=== PATIENT | female | born 1955 | race Caucasian/White ===

== ENCOUNTER 2016-10-30 15:08 | Inpatient (IN) | payer OTHER ==
[~2016-10-30] VITALS: Ht 162.6 cm; Wt 85.3 kg
--- NOTE | ~2016-10-30 | 2DMMODE ---
[facility] [place] [address] 2 D/M-MODE ECHOCARDIOGRAM Name: FRAZIERALEENA Azevedo Room #: 207-P [facility]#: [id number] Admission: 10/30/16 Attend Phys: Aryan Kinney, Discharge: Date of : 53 Date of Service: 10/31/16 1039 Report #: [id number] THIS REPORT FOR: //name// Transthoracic Echocardiography Ordering physician: Jose Harper Referring physician: Jose Harper Family Member Caretaker: Amina Mireles RDCS Indications/History: Acute PE. Dyspnea. Risk factors: Hypertension. BP: 139 / HR: 96bpm Height: 64in Weight: 159.7lb 86 Study data: Comparison was made to the study of July 02, 2015. M-mode, complete 2D, complete spectral Doppler, and color Doppler. Location: Bedside. Director Of Assessing. Image quality was fair. 2D measurements Normal Normal LVID ED 45.4mm 36-57 IVS ED 10.9mm 6-11 LVID ES 29.6mm 23-40 LVPW ED 12mm 6-11 LA volume 15ml/m2 16-28 AoRoot diam 33.6mm 21-37 index ED LVOT diameter 18mm 18-23 Findings: Left ventricle: The cavity size was normal. Wall thickness was increased in a pattern of mild LVH. Systolic function was normal. Wall motion was normal. Right ventricle: The cavity size was normal. Systolic function was normal. Right atrium: The atrium was normal in size. Left atrium: The atrium was normal in size. Volume index: 15ml/m2 (S). Aortic valve: Structurally normal valve. Doppler: There was no stenosis. No regurgitation. Peak velocity: 159.5cm/s (S). Peak gradient: 10.2mm Hg (S). [facility] [address] [address] 2 D/M-MODE ECHOCARDIOGRAM Name: ALEENA FRAZIER Room #: 207-P [facility] IN M.R.#: [id number] Admission: 10/30/16 Attend Phys: Aryan Kinney, Discharge: Date of : 53 Date of Service: 10/31/16 1039 Report #: [id number] Mitral valve: Calcified annulus. Doppler: There was no evidence for stenosis. Mild regurgitation. Peak E-wave velocity: 79.7cm/s. Peak gradient: 2.5mm Hg (D). Peak A-wave velocity: 119.8cm/s. Tricuspid valve: Structurally normal valve. Doppler: There was no evidence for stenosis. Mild regurgitation. Regurgitant peak velocity: 370cm/s. Peak RV-RA gradient: 55mm Hg (S). Pulmonic valve: Structurally normal valve. Doppler: There was no evidence for stenosis. No regurgitation. Pericardium: There was no pericardial effusion. Aorta: Aortic root: The aortic root was normal in size. Pulmonary artery: Systolic pressure was estimated to be 60mm Hg. Diastolic function: Doppler parameters are consistent with abnormal left ventricular relaxation (grade 1 diastolic dysfunction). Systemic veins: Inferior vena cava: The vessel was normal in size; the respirophasic diameter changes were in the normal range (= 50%). Conclusions 1. Left ventricle: The cavity size was normal. Wall thickness was increased in a pattern of mild LVH. Systolic function was normal. Doppler parameters are consistent with abnormal left ventricular relaxation (grade 1 diastolic dysfunction). 2. Left atrium: The atrium was normal in size. 3. Aortic valve: Structurally normal valve. 4. Mitral valve: Mild regurgitation. 5. Tricuspid valve: Mild regurgitation. 6. Pericardium, extracardiac: There was no pericardial effusion. 7. Pulmonary arteries: Systolic pressure was estimated to be 60mm Hg. <ELECTRONICALLY SIGNED> By: Uday Gustafson MD, [facility] 10/31/16 2254 1039 2254 Uday Gustafson MD, [facility] /karla
--- NOTE | ~2016-10-30 | EKG ---
[address] [place] [address] ELECTROCARDIOGRAM REPORT Name: ALEENA FRAZIER Room #: 207-P [facility] IN M.R.#: [id number] Admission: 10/30/16 Attend Phys: Aryan Kinney MD Discharge: 11/01/16 Date of : 53 Report #: [id number] THIS REPORT FOR: //name// [facility] ED Test Date: 2016-10-30 Test Time: 15:15:11 Pat Name: ALEENA FRAZIER Department: Room: 207 Gender: F Business Investor: MAGDALENA : 1955 Requested By: Lalitha Aguiar Order Number: [id number] MD: Keaton Jefferson Measurements Intervals [place] Rate: 116 P: 62 RI: 146 QRS: 16 QRSD: 72 T: 75 QT: 322 QTc: 448 Interpretive Statements Sinus tachycardia Otherwise no significant abnormality No previous ECG available for comparison Electronically Signed On 11-01-2016 14:03:13 [employer] OPER[employer] CHIEF by Keaton Jefferson [email or web address] <ELECTRONICALLY SIGNED> By: Keaton Jefferson MD, [facility] 11/01/16 1403 1515 1515 Keaton Jefferson MD, FACC /EPI
[2016-10-30 15:08] VITALS: BP 152/93
[~2016-10-30 15:08] MED LIST: ADVAIR 250-501 EACH INH; ADVAIR 500-501 EACH INH; ALLEGRA180 MG PO; AMOXICILLIN 50500 MG PO; BENICAR20 MG PO; CLOTRIMAZOLE 1%30 M1 OTIC; DEXAMETHAS0.5 MG/51 NASAL; ELOCON15 G1 TOP; ESTRACE2 MG PO; FETZIMA40 MG PO; GAS-X ULTRA ST180 MG PO; HYDROCODONE-ACE15 ML PO; HYDROCODONE-AP1 EAC6 PO; LEVAQUIN 500 M500 M2 PO; LEXAPRO 10 MG T10 M1 PO; MEDROLDOSEPACK PO; MOBIC15 MG PO; NASOCORT INH; PROAIR HFA8.5 GM INH; PROTONIX40 M2 PO; ROBAXIN 750 MG750 M1 PO; SINGULAIR 10 MG10 M1 PO; VIIBRYD20 MG PO; VITAMIN D1000 UNI1 PO; VOLTAREN GEL 1100 G2 TOP; XANAX 0.5 MG0.5 MG PO; XARELTO20 MG PO; ZADITOR5 M1 GTT
[2016-10-30 16:53] LABS: ABSOLUTE NEUTROPHILS 9.5 thou/uL (1.4-8.2); BASOPHILS 0.4 % (0.0-2.0); EOSINOPHILS 2.2 % (0.0-3.0); HEMOGLOBIN 12.9 gm/dL (12.0-15.0); LYMPHOCYTES 10.4 % (24.0-44.0); MCH 31.8 pg (26.0-34.0); MCHC 33.1 % (28.0-37.0); MONOCYTES 9.7 % (1.0-8.0); PLATELET COUNT 232 thou/uL (150-400); POLYS 77.3 % (36.0-66.0); RBC 4.06 mil/uL (4.20-5.00); RDW 14.1 % (10.5-14.5); WBC 12.3 thou/uL (4.0-11.0)
[2016-10-30 16:57] LABS: MANUAL DIFF NO
[2016-10-30 17:04] LABS: CALCIUM 8.8 mg/dL (8.5-10.1); CREATININE 1.1 mg/dL (0.6-1.3); POTASSIUM 4.4 mmol/L (3.5-5.1)
[2016-10-30 17:11] LABS: ALBUMIN 3.2 g/dL (3.4-5.0); TOTAL BILIRUBIN 0.4 mg/dL (<0.1-1.0); TOTAL PROTEIN 7.1 g/dL (6.4-8.2); TROPONIN-I 0.21 ng/mL (<0.04-0.07)
[2016-10-30 20:29] VITALS: BP 155/97
[2016-10-31 00:34] VITALS: BP 127/92
[2016-10-31 03:47] VITALS: BP 139/86
[2016-10-31 05:05] LABS: HEMATOCRIT 38.8 % (37.0-47.0); HEMOGLOBIN 12.7 gm/dL (12.0-15.0); MCHC 32.7 % (28.0-37.0); RBC 3.96 mil/uL (4.20-5.00); WBC 11.9 thou/uL (4.0-11.0)
[2016-10-31 05:44] LABS: CALCIUM 8.8 mg/dL (8.5-10.1); CREATININE 0.8 mg/dL (0.6-1.3); POTASSIUM 3.6 mmol/L (3.5-5.1)
[2016-10-31 07:55] VITALS: BP 151/104
[2016-10-31 12:55] VITALS: BP 127/87
[2016-10-31 16:35] VITALS: BP 138/85
[2016-10-31 20:10] VITALS: BP 156/92
[2016-11-01 00:35] VITALS: BP 148/101
[2016-11-01 04:32] LABS: HEMATOCRIT 32.4 % (37.0-47.0); HEMOGLOBIN 10.9 gm/dL (12.0-15.0); MCH 32.3 pg (26.0-34.0); MCHC 33.6 % (28.0-37.0); MCV 95.9 fL (80.0-100.0); RBC 3.38 mil/uL (4.20-5.00); RDW 14.2 % (10.5-14.5); WBC 9.9 thou/uL (4.0-11.0)
[2016-11-01 04:48] LABS: CALCIUM 8.3 mg/dL (8.5-10.1); CREATININE 0.8 mg/dL (0.6-1.3); POTASSIUM 4.1 mmol/L (3.5-5.1)
[2016-11-01 05:03] VITALS: BP 145/100
[2016-11-01 07:15] VITALS: BP 145/100
[2016-11-01] MEDS ORDERED: XARELTO15 MG PO (08:54)
[2016-11-01] MEDS ORDERED: AZITHROMYCIN 2250 MG PO (08:54)
[2016-11-01] MEDS ORDERED: XARELTO20 MG PO (08:56)
[2016-11-01 09:57] VITALS: BP 145/100
== END 2016-11-01 10:59 | disposition home or self-care (01) | DRG 176 ==
LOC: ER 15:08 → EROBS 17:30 → 2N 20:26
PROVIDERS: Hospitalist; Physician Assistant
PROC: 5A09357 Assistance with Respiratory Ventilation, Less than 24 Consecutive Hours, Continuous Positive Airway Pressure (ICD-10-PCS; principal; 2016-11-01)
DX: I26.99 Other pulmonary embolism without acute cor pulmonale (principal); G90.519 Complex regional pain syndrome I of unspecified upper limb; J45.909 Unspecified asthma, uncomplicated; G47.33 Obstructive sleep apnea (adult) (pediatric); I10 Essential (primary) hypertension; K21.9 Gastro-esophageal reflux disease without esophagitis; J32.9 Chronic sinusitis, unspecified; F32.9 Major depressive disorder, single episode, unspecified; Z99.89 Dependence on other enabling machines and devices; Z79.01 Long term (current) use of anticoagulants; Z90.49 Acquired absence of other specified parts of digestive tract; Z91.048 Other nonmedicinal substance allergy status; Z88.1 Allergy status to other antibiotic agents; Z98.890 Other specified postprocedural states
CPT/HCPCS: 10194

== ENCOUNTER → 2017-06-25 | Outpatient (CLI) | payer OTHER ==
[~2017-06-25] MED LIST changes: +AZITHROMYCIN 2250 MG PO; +XARELTO15 MG PO
== END ==
LOC: RAD 02:45
DX: Z12.31 Encounter for screening mammogram for malignant neoplasm of breast (principal)

== ENCOUNTER → 2017-10-12 | Outpatient (CLI) | payer OTHER ==
--- NOTE | ~2017-10-12 | 2DMMODE ---
[facility] [place] [address] 2 D/M-MODE ECHOCARDIOGRAM Name: FRAZIERALEENA Roberto Carlos Room #: REG CL [facility]#: [id number] Admission: 10/12/17 Attend Phys: Aryan Kinney, Discharge: Date of : 53 Date of Service: 10/12/17 1607 Report #: [id number] THIS REPORT FOR: //name// APPROVED REPORT Study performed: 10/12/2017 13:56:13 EXAM: Comprehensive 2D, Doppler, and color-flow Echocardiogram Patient Location: Out-Patient Status: routine BSA: 1.83 HR: 89 bpm BP: 129/86 mmHg Rhythm: NSR Other Information Study Quality: Good Indications Cough, dyspnea. Hx: Pulmonary embolism, HTN 2D Dimensions RVDd: 27.31 mm LVEF(%): 55.78 (>50%) IVSd: 12.00 (7-11mm) LVOT Diam: 18.75 (18-24mm) LVDd: 43.57 mm PWd: 12.00 (7-11mm) Ascending Ao: 33.03 (22-36mm) LVDs: 30.99 (25-40mm) Aortic Root: 30.67 mm Zaragoza's LVEF: 55.78 % Volumes Left Atrial Volume (Systole) Single Plane 4CH: 49.34 mL Single Plane 2CH: 46.73 mL LA ESV Index: 28.00 mL/m2 Aortic Valve AoV Peak Tariq.: 1.67 m/s AO Peak Gr.: 11.12 mmHg LVOT Max P.35 mmHg LVOT Max V: 1.16 m/s JESSE Vmax: 1.91 cm2 Mitral Valve E/A Ratio: 0.8 MV Decel. Time: 157.07 ms [facility] [place] [address] 2 D/M-MODE ECHOCARDIOGRAM Name: ALEENA FRAZIER Room #: [facility]#: [id number] Admission: 10/12/17 Attend Phys: Aryan Kinney, Discharge: Date of : 53 Date of Service: 10/12/17 1607 Report #: [id number] MV E Max Tariq.: 0.77 m/s MV A Tariq.: 0.92 m/s MV PHT: 45.55 ms IVRT: 76.12 ms Pulmonary Valve PV Peak Tariq.: 1.10 m/s PV Peak Gr.: 4.88 mmHg Tricuspid Valve TR Peak Tariq.: 2.68 m/s RAP Estimate: 5.00 mmHg TR Peak Gr.: 28.67 mmHg PA Pressure: 35.00 mmHg Left Ventricle The left ventricle is normal size. There is normal LV segmental wall motion. Mild concentric left ventricular hypertrophy. Left ventricular systolic function is normal. LVEF is 55-60%. Mild diastolic dysfunction is present (impaired relaxation pattern). Right Ventricle The right ventricle is normal size. The right ventricular systolic function is normal. Atria The left atrium size is normal. The right atrium size is normal. Aortic Valve The aortic valve is normal in structure. Mild aortic regurgitation. There is no aortic valvular stenosis. Mitral Valve The mitral valve is normal in structure. Mild mitral annular calcification. Mild mitral regurgitation. Tricuspid Valve The tricuspid valve is normal in structure. Trace tricuspid regurgitation. Estimated PAP is 35mmHg. Pulmonic Valve The pulmonary valve is normal in structure. Mild pulmonic regurgitation. Great Vessels The aortic root is normal in size. The ascending aorta is normal in [facility] [address] [place] [address] 2 D/M-MODE ECHOCARDIOGRAM Name: ALEENA FRAZIER [facility]: [facility] [id number] Admission: 10/12/17 Attend Phys: Aryan Kinney, Discharge: Date of : 53 Date of Service: 10/12/17 1607 Report #: [id number] size. IVC is normal in size and collapses >50% with inspiration. Pericardium There is no pericardial effusion. <Conclusion> The left ventricle is normal size. Mild concentric left ventricular hypertrophy. Left ventricular systolic function is normal. Mild diastolic dysfunction is present (impaired relaxation pattern). The right ventricle is normal size. The left atrium size is normal. Mild aortic regurgitation. Mild mitral regurgitation. Trace tricuspid regurgitation. Estimated PAP is 35mmHg. <ELECTRONICALLY SIGNED> By: Lavell Wilkins MD 10/12/171606 06 06 Lavell Wilkins MD /INF
== END ==
LOC: CV 12:52
DX: I50.30 Unspecified diastolic (congestive) heart failure (principal); I08.0 Rheumatic disorders of both mitral and aortic valves

== ENCOUNTER → 2019-06-29 | Outpatient (CLI) | payer OTHER, MEDICARE | LOC: RAD 02:27 | DX: Z12.31 Encounter for screening mammogram for malignant neoplasm of breast (principal) ==

== ENCOUNTER → 2019-11-08 | Outpatient (CLI) | payer OTHER, MEDICARE | LOC: MRI 12:25 | DX: M47.816 Spondylosis without myelopathy or radiculopathy, lumbar region (principal); M43.16 Spondylolisthesis, lumbar region; M53.87 Other specified dorsopathies, lumbosacral region; M51.26 Other intervertebral disc displacement, lumbar region; M12.88 Other specific arthropathies, not elsewhere classified, other specified site; M48.061 Spinal stenosis, lumbar region without neurogenic claudication ==

== ENCOUNTER → 2020-04-30 | Outpatient (CLI) | payer OTHER, MEDICARE | LOC: SJCVC 13:18 | PROVIDERS: ATTEND Internal Medicine Cardiovascular Disease | DX: R94.31 Abnormal electrocardiogram [ECG] [EKG] (principal); R06.09 Other forms of dyspnea; R07.9 Chest pain, unspecified; I10 Essential (primary) hypertension; K21.9 Gastro-esophageal reflux disease without esophagitis ==

== ENCOUNTER → 2020-05-14 | Outpatient (CLI) | payer OTHER, MEDICARE | LOC: SJCVCIMAG 07:50 | PROVIDERS: ATTEND Internal Medicine Cardiovascular Disease | DX: I49.3 Ventricular premature depolarization (principal); I10 Essential (primary) hypertension; Z79.01 Long term (current) use of anticoagulants; Z79.899 Other long term (current) drug therapy ==

== ENCOUNTER → 2020-05-15 | Outpatient (CLI) | payer OTHER, MEDICARE | LOC: SJCVCIMAG 08:22 | PROVIDERS: ATTEND Internal Medicine Cardiovascular Disease | DX: I08.3 Combined rheumatic disorders of mitral, aortic and tricuspid valves (principal); R06.09 Other forms of dyspnea; R07.9 Chest pain, unspecified; I10 Essential (primary) hypertension; K21.9 Gastro-esophageal reflux disease without esophagitis ==

== ENCOUNTER → 2020-07-03 | Outpatient (CLI) | payer OTHER, MEDICARE | LOC: BC 12:48 | DX: Z12.31 Encounter for screening mammogram for malignant neoplasm of breast (principal) ==

== ENCOUNTER → 2021-05-15 | Outpatient (CLI) | payer OTHER, MEDICARE | LOC: SJCVCIMAG 09:43 | PROVIDERS: ATTEND Internal Medicine Cardiovascular Disease | DX: I08.3 Combined rheumatic disorders of mitral, aortic and tricuspid valves (principal); I11.9 Hypertensive heart disease without heart failure; R06.00 Dyspnea, unspecified; I10 Essential (primary) hypertension; K21.9 Gastro-esophageal reflux disease without esophagitis; R60.9 Edema, unspecified; J45.909 Unspecified asthma, uncomplicated; E66.9 Obesity, unspecified; G47.33 Obstructive sleep apnea (adult) (pediatric); Z98.890 Other specified postprocedural states; Z88.8 Allergy status to other drugs, medicaments and biological substances; Z79.899 Other long term (current) drug therapy; Z86.711 Personal history of pulmonary embolism; Z82.49 Family history of ischemic heart disease and other diseases of the circulatory system ==